=== PATIENT | female | born 1980 | race Caucasian/White ===

== ENCOUNTER 2017-03-14 13:09 | Emergency (ER) | payer MEDICAID ==
[~2017-03-14] VITALS: Ht 170.2 cm; Wt 131.5 kg
[2017-03-14 13:11] VITALS: BP 152/95
--- NOTE | 2017-03-14 14:19 | NUR ---
Patient ambulated to TF02. [employer] evaluating patient.
--- NOTE | 2017-03-14 14:47 | NUR ---
ALBERTO Rizo evaluating patient in fast track.
[2017-03-14] MEDS ORDERED: IBUPROFEN 600 MG TAB PO ONE (14:50)
[2017-03-14] MEDS ORDERED: CYCLOBENZAPRINE 10 MG TAB PO ONE (14:50)
--- NOTE | 2017-03-14 14:58 | NUR ---
Pt called for help in the bathroom. States she is unable to get up from the toilet and feels dizzy. Charge nurse Juanita and myself wheel chair assisted patient from bathroom to w/c and wheeled her back to fast track area. ALBERTO Rizo aware.
[2017-03-14 16:00] VITALS: BP 109/64
--- NOTE | 2017-03-14 16:00 | NUR ---
Chart checked and completed. The patient's care was reviewed and supervised by Gabriella Ji RN.
--- NOTE | 2017-03-14 16:00 | NUR ---
Patient discharged with v/s stable. Written and verbal after care instructions given and explained. Patient alert, oriented and verbalized understanding of instructions. Ambulatory with steady gait. All questions addressed prior to discharge. ID band removed. Patient advised to follow up with PMD. Rx of flexirel,motrin given. Patient educated on indication of medication including possible reaction and side effects. Opportunity to ask questions provided and answered.
== END 2017-03-14 16:00 | disposition home or self-care (01) ==
LOC: MED 13:09
DX: M54.9 Dorsalgia, unspecified (principal)

== ENCOUNTER 2017-12-22 21:12 | Inpatient (IN) | payer MEDICAID, OTHER ==
[~2017-12-22] VITALS: Ht 170.2 cm; Wt 148.3 kg
[2017-12-22 21:27] VITALS: BP 140/79
--- NOTE | 2017-12-22 22:05 | NUR ---
PT TAKEN TO BED 1
[2017-12-22] MEDS ORDERED: SUMAtriptan 25 MG TAB PO ONE (22:15)
--- NOTE | 2017-12-22 22:15 | NUR ---
PATIENT PRESENTS TO ED WITH C/O RT ARM SWOLLEN SINCE YESTERDAY AND HEADACHE TODAY MED HX: FATTY LIVER . DENIES N/V/D; SKIN IS PINK/WARM/DRY; AAOX4 WITH EVEN AND STEADY GAIT; LUNGS CLEAR BL; HR EVEN AND REGULAR; PT DENIES ANY FEVER, CP, SOB, OR COUGH AT THIS TIME; PATIENT STATES RIGHT ARM PAIN OF 6/10 AND HEADACHE 5/10 AT THIS TIME; VSS; PATIENT POSITIONED FOR COMFORT; HOB ELEVATED; BEDRAILS UP X2; BED DOWN. ER MD MADE AWARE OF PT STATUS.
[2017-12-22] MEDS ORDERED: IBUP-44 PO (23:13)
[2017-12-22] MEDS ORDERED: HYDROcodone/APAP 5/325 MG 1 TAB TAB PO PRN (23:15)
[2017-12-22] MEDS ORDERED: MORPHINE SULFATE 4 MG/ML SYR IVP PRN (23:15)
[2017-12-22] MEDS ORDERED: ACETAMINOPHEN 325 MG TAB PO PRN (23:15)
[2017-12-22] MEDS ORDERED: ONDANSETRON 4 MG/2 ML VIAL IVP PRN (23:15)
--- NOTE | 2017-12-22 23:55 | NUR ---
Patient will be admitted to care. Admited to [facility]. Will go to room 106A. Belongings list completed. Report to .
[2017-12-23] VITALS: BP 140/79
--- NOTE | 2017-12-23 | NUR ---
PT ARRIVED TO UNIT VIA GURNEY AND WALKED FROM HALLWAY TO BED WITH STEADY GAIT. RECEIVED REPORT FROM ER NURSE AT PT BEDSIDE. PT IS A/OX4, ON ROOM AIR. 18G IV TO LEFT AC SALINE LOCKED AT THE MOMENT. PT SKIN IS INTACT. MRSA NARES SWAB OBTAINED AND SENT TO LAB. PT AT BEDSIDE. UPDATED BOARD. VITAL SIGNS WITHIN NORMAL LIMITS. PT IN STABLE CONDITION, NO SIGNS OF DISTRESS NOTED. BED IN LOWEST POSITION, CALL LIGHT WITHIN REACH. WILL CONTINUE TO MONITOR.
[2017-12-23] MEDS: NACL 0.9% 1,000 ML IV SCH ×2 (00:07→11:41)
--- NOTE | 2017-12-23 00:08 | NUR ---
HUNG BAG OF NS@80ML/HR, PT TOLERATING WELL.
--- NOTE | 2017-12-23 01:30 | NUR ---
MOVED PT FROM ROOM 106A TO 120B. INFORMED HE CAN NOT SPEND THE NIGHT AND INFORMED HIM OF VISITING HOURS, HE VERBALIZED UNDERSTANDING AND SAID HE WOULD BE BACK IN THE MORNING.
--- NOTE | 2017-12-23 03:15 | NUR ---
PT WAS COMPLAINING OF PAIN AT IV SITE. INSERTED NEW 20G IV TO LEFT FOREARM, PT TOLERATED WELL. DISCONTINUED 18G LAC IV, CANNULA INTACT. PT IN STABLE CONDITION, NO SIGNS OF DISTRESS NOTED. BED IN LOWEST POSITION, CALL LIGHT WITHIN REACH. WILL CONTINUE TO MONITOR.
[2017-12-23 04:00] VITALS: BP 121/54
--- NOTE | 2017-12-23 04:45 | NUR ---
PT IN STABLE CONDITION, NO SIGNS OF DISTRESS NOTED. BED IN LOWEST POSITION, CALL LIGHT WITHIN REACH. WILL CONTINUE TO MONITOR.
--- NOTE | 2017-12-23 07:37 | NUR ---
ENDORSED PT IN STABLE CONDITION TO DAY SHIFT NURSE FOR CONTINUITY OF CARE.
--- NOTE | 2017-12-23 07:38 | NUR ---
RECEIVED REPORT AT BEDSIDE FOR CONTINUITY OF CARE. PATIENT ALERT AND ABLE TO MAKE NEEDS KNOWN. NO ACUTE DISTRESS NOTED. NEGOTIATOR SALES AT BEDSIDE TO DRAW BLOOD FROM LEFT EXTREMITY. IV PAUSED MOMENTARILY. IV RESUMED OF NS @80ML/HR TO LFA 20G. CALL LIGHT WITHIN REACH. WILL CONT TO MONITOR PT.
[2017-12-23 07:43] LABS: BASOPHILS # (AUTO) 0.2 K/uL (0.00-0.22); BASOPHILS % (AUTO) 4.4 % (0.0-2.0); EOSINOPHILS # (AUTO) 0.1 K/uL (0-0.4); EOSINOPHILS % (AUTO) 1.1 % (0.0-4.0); HEMATOCRIT 42.9 % (36-48); HEMOGLOBIN 14.1 g/dL (12.0-16.0); LYMPHOCYTES # (AUTO) 1.1 K/uL (2.5-16.5); LYMPHOCYTES % (AUTO) 23.8 % (20.5-51.1); MEAN CORPUSCULAR HEMOGLOBIN 28 pg (27-31); MEAN CORPUSCULAR HGB CONC 33 g/dL (33-37); MEAN CORPUSCULAR VOLUME 86 fL (80-94); MONOCYTES # (AUTO) 0.7 K/uL (0.8-1.0); MONOCYTES % (AUTO) 14.1 % (1.7-9.3); NEUTROPHILS # (AUTO) 2.7 K/uL (1.8-7.7); NEUTROPHILS % (AUTO) 56.6 % (42.2-75.2); PLATELET COUNT (AUTO) 175 K/uL (140-450); RED BLOOD CELL COUNT(AUTO) 4.98 MIL/uL (4.20-5.40); RED CELL DISTRIBUTION WIDTH 13.1 % (11.6-13.7); WHITE BLOOD COUNT (AUTO) 4.8 K/uL (4.8-10.8)
[2017-12-23 07:57] LABS: ANION GAP 12.4 (8-16); CARBON DIOXIDE 24.4 mmol/L (21-32); CREATININE 0.6 mg/dL (0.6-1.3); POTASSIUM 3.8 mmol/L (3.5-5.1)
[2017-12-23 08:00] VITALS: BP 114/69
--- NOTE | 2017-12-23 08:52 | NUR ---
PATIENT C/O 8/10 PAIN TO RUE . PT VERBALIZED SHE WAS LYING ON HER RIGHT SIDE. EDUCATED PATIENT TO STAY OFF THE RIGHT EXTREMITY. RFA WARM TO TOUCH SLIGHTLY SWOLLEN IN COMPARISION TO LUE. MORPHINE 2MG ADMINISTERED. TOLERATED WELL. FAMILY AT BEDSIDE. CALL LIGHT WITHIN REACH. WILL CONT TO MONITORPT.
[2017-12-23] MEDS ORDERED: LOVENOX 1MG/KG Q12H SUBQ SCH (09:00)
[2017-12-23] MEDS ORDERED: ENOXAPARIN 100 MG/ML SYR SUBQ SCH ×2 (09:30→21:00)
[2017-12-23 09:33] LABS: PROTHROMBIN TIME 11.1 secs (10.8-13.4)
--- NOTE | 2017-12-23 09:34 | NUR ---
ADMINISTERED LOVENOX PER MD ORDER.TOLERATED WELL. PT RESTING IN BED WITH EYES CLOSED. PT VERBALIZED PAIN DECREASED. FAMILY AT BEDSIDE. CALL LIGHT WITHIN REACH. WILL CONT TO MONITOR PT.
--- NOTE | 2017-12-23 10:15 | NUR ---
PATIENT HAS BEEN SCREENED AND CATEGORIZED HIGH NUTRITION RISK. PATIENT WILL BE SEEN WITHIN 1-2 DAYS OF ADMISSION. 12/23/17 - 12/24/17 MARY FONG MBA, RD
[2017-12-23] MEDS ORDERED: WARFARIN 2.5 MG TAB PO SCH (11:00)
[2017-12-23] MEDS ORDERED: WARFARIN 5 MG TAB PO SCH ×2 (11:05→17:00)
--- NOTE | 2017-12-23 11:57 | NUR ---
COUMADIN ADMINISTERED. PATIENT TOLERATED WELL. PT EDUCATION AND INFORMATIONAL HANDOUT PROVIDED REGARDING MEDICATION. CALL LIGHT WITHIN REACH. FAMILY AT BEDSIDE.WILL CONT TO MONITOR PT.
[2017-12-23 12:00] VITALS: BP 101/62
[2017-12-23] MEDS ORDERED: IBUPROFEN 200 MG TAB PO PRN (14:10)
--- NOTE | 2017-12-23 14:30 | NUR ---
DR NELSON IN TO SEE PATIENT WITH NEW ORDERS. IVF DC. HAT PLACED ON TOILET FOR URINE TEST. PATIENT WITH FAMILY AT BEDSIDE. INSTRUCTED PT TO CALL WHEN VOID. PATIENT DENIES PAIN . NO ACUTE DISTRESS NOTED. RESP EVEN AND UNLABORED.CALL LIGHT WITHIN REACH. WILL CONT TO MONITOR PT.
--- NOTE | 2017-12-23 15:11 | NUR ---
12/23/17 RD INITIAL ASSESSMENT COMPLETED PLEASE REFER TO NUTRITION ASSESSMENT UNDER CARE ACTIVITY FOR ESTIMATED NUTRITIONAL NEEDS. RD RECOMMENDATIONS: 1- RECOMMEND CONTINUE REGULAR DIET 2- ENCOURAGE GRADUAL HEALTHY WEIGHT LOSS 3- F/U 3-5 DAYS; MODERATE RISK. MARY FONG MBA, RD
--- NOTE | 2017-12-23 16:30 | NUR ---
PATIENT IN ROOM WITH AT BEDSIDE. NO ACUTE DISTRESS NOTED.RESP EVEN AND UNLABORED. NO C/O PAIN OR DISCOMFORT. CALL LIGHT WITHIN REACH. WILL CONT TO MONITOR PT.
[2017-12-23 18:00] VITALS: BP 139/85
--- NOTE | 2017-12-23 18:20 | NUR ---
PT TO DC HOME WITH VIA PRIVATE VEHICLE. EXPLAINED DISCHARGE INSTRUCTIONS TO PT. PT VERBALIZED UNDERSTANDING AND AGREEMENT TO DISCHARGE ORDERS. MEDICATION INFORMATION PROVIDED AND DISCUSSED WITH PATIENT.INFORMED PATIENT TO SET UP APPT WITH PCP IN 1 WEEK FOR F/U. DISCUSSED DISCHARGE INSTRUCTIONS IN PREFERRED LANGUAGE OF [place]. IV DCD. LUMEN INTACT. PATIENT TOLERATED WELL. ID BANDS REMOVED. PATIENT TO BE ESCORTED TO FRONT LOBBY WHEN READY.
--- NOTE | 2017-12-23 18:30 | NUR ---
PT ESCORTED OUT TO FRONT LOBBY WALKING. GAIT STEADY. TO DRIVE PT HOME VIA PRIVATE VEHICLE. PT LEFT FACILITY WITH ALL BELONGINGS WITHOUT DIFFICULTIES GETTING INTO PRIVATE VEHICLE.
--- NOTE | 2017-12-25 13:35 | NUR ---
CM NOTE RETRO REVIEW FAXED TO [facility] / FAX# [phone], ATTN: ENRIQUETA [phone]
== END 2017-12-23 18:30 | disposition home or self-care (01) | DRG 197 ==
LOC: MED 21:12 → MTU 23:16
PROVIDERS: ADMIT Hospitalist; ATTEND Hospitalist
DX: I82.611 Acute embolism and thrombosis of superficial veins of right upper extremity (principal); Z68.43 Body mass index [BMI] 50.0-59.9, adult; E66.01 Morbid (severe) obesity due to excess calories; Z82.49 Family history of ischemic heart disease and other diseases of the circulatory system; Z87.891 Personal history of nicotine dependence
CPT/HCPCS: 36415; 80048; 84703; 85025; 85610; 87081; 93971; 99285; J1650; J2270; J7030; Q0092

== ENCOUNTER 2019-04-29 01:50 | Emergency (ER) | payer OTHER ==
[~2019-04-29] VITALS: Ht 170.2 cm; Wt 147.2 kg
[~2019-04-29 01:50] MED LIST: IBUP-44 PO
[2019-04-29 01:56] VITALS: BP 159/86
--- NOTE | 2019-04-29 02:00 | NUR ---
38 Y/O F AMBULATED TO BED 9 C/O OF LEFT ANKLE SWELLING TODAY. ALERT AND ORIENTED X4. DENIES TRAUMA OR INJURY. SWELLING IS PRESENT ON THE BACK OF ANKLE. NO REDNESS OR BRUISING NOTED. PAIN LEVEL 5/10, STINGING PAIN. MEDHX: DVT AND LIVER CIRRHOSIS. SAFETY MEASURES IN PLACE. WAITING FOR MD TO REEVALUATE. EMD MADE AWARE OF PT STATUS. Addendum: 04/29/19 at 0236 by [email or web address] 38 Y/O F AMBULATED TO BED 9 C/O OF LEFT ANKLE SWELLING TODAY. ALERT AND ORIENTED X4. DENIES TRAUMA OR INJURY. SWELLING IS PRESENT ON THE BACK OF ANKLE. NO REDNESS OR BRUISING NOTED. ANKLE AREA IS COOL TO TOUCH. PAIN LEVEL 5/10, STINGING PAIN. MEDHX: DVT AND LIVER CIRRHOSIS. SAFETY MEASURES IN PLACE. WAITING FOR MD TO REEVALUATE. EMD MADE AWARE OF PT STATUS
--- NOTE | 2019-04-29 02:13 | NUR ---
ERMD AT BEDSIDE
[2019-04-29] MEDS ORDERED: IBUPROFEN 600 MG TAB PO ONE (02:15)
--- NOTE | 2019-04-29 02:25 | NUR ---
XRAY AT BEDSIDE
--- NOTE | 2019-04-29 03:17 | NUR ---
ULTRASOUND AT BEDSIDE.
[2019-04-29 03:39] VITALS: BP 159/86
--- NOTE | 2019-04-29 03:41 | NUR ---
Patient discharged with v/s stable. Pain level 0/10. No changes in ankle swelling. Written and verbal after care instructions given and explained. Educated pt about resting, icing and elevating lower left foot.Patient alert, oriented and verbalized understanding of instructions. Ambulatory with steady gait. All questions addressed prior to discharge. ID band removed. Patient advised to follow up with PMD. Rx of Ibuprofen given. Patient educated on indication of medication including possible reaction and side effects. Opportunity to ask questions provided and answered.
== END 2019-04-29 03:36 | disposition home or self-care (01) ==
LOC: MED 01:50
DX: M25.572 Pain in left ankle and joints of left foot (principal); Z86.718 Personal history of other venous thrombosis and embolism; Z79.899 Other long term (current) drug therapy
CPT/HCPCS: 73610; 93971; 99284; Q0092